=== PATIENT | male | born 1945 | race Caucasian/White ===

== ENCOUNTER 2016-10-06 08:40 | Outpatient (CLI) ==
[2016-05-06 23:57] VITALS: BMI 40.8
--- NOTE | 2016-10-06 09:13 | DI ---
Exam: Six x-rays of the cervical spine. Comparison: None available. Reason for exam: Numbness of scan. FINDINGS: Imaging was obtained from the C2 vertebral body to the C5-6 interspace. The C6 vertebral body, C7 vertebral body, and C7-T1 interspaces are not well evaluated secondary to summation from t he patient's shoulders. Multilevel degenerative disease with osteophyte formation and intervertebral body disc space height loss. There is straightening of the cervical lordotic curve. The prevertebral soft tissues are wit hin normal limits. The dens is intact on the Cook view. Impression: 1. Limited evaluation secondary to patient's body habitus and positioning. No obvious fracture or listhesis in the imaged portions of the cervical spine. 2. Multilevel degenerative disease with intervertebral body disc space height loss and osteophyte f ormation. If clinical suspicion is high for osseous injury, CT imaging may be performed. If clinic al suspicion exists for myelopathy or radiculopathy, MRI may be performed.
== END 2016-10-06 08:41 | disposition home or self-care (01) ==
LOC: RAD 08:40
PROVIDERS: ATTEND Physician Assistant Medical
DX: R20.0 Anesthesia of skin (principal)

== ENCOUNTER 2016-10-15 12:44 | Outpatient (CLI) ==
[2016-05-06 23:57] VITALS: BMI 40.8
--- NOTE | 2016-10-15 14:30 | CT ---
EXAM: CT cervical spine without contrast. HISTORY: Neck pain COMPARISON: Cervical spine x-ray 10/06/2016 TECHNIQUE: Serial axial images of the cervical spine were obtained from the skull base through the lung apices without contrast. These were viewed in multiple planes. FINDINGS: Vertebral bodies demonstrate multilevel degenerative disease with narrowing and osteophyt e formation. There is scattered facet arthropathy. The posterior processes are normal. There is no lytic or blastic lesion. The odontoid process is unremarkable. The C1 ring is intact. There is a broad-based disc bulge and facet arthropathy at C4-C5 with minimal neural foraminal narrowing. The re is broad-based disc bulge and facet arthropathy at C5-C6 with moderate central and moderate to se orion bilateral neural foraminal narrowing. C6-C7 demonstrates severe narrowing, osteophyte formatio n and disc bulge with moderate central and severe right and moderate left neural foraminal narrowing . There is moderate emphysematous disease. There is paranasal sinus disease. There is metallic artif act in the region of the skull base suggestive of previous aneurysm treatment. IMPRESSION: 1. No acute compression fracture or subluxation. 2. Multilevel degenerative disease most pronounced at C5-C6 with moderate central and moderate to s evere bilateral neural foraminal narrowing. If further evaluation is clinically indicated, MRI may be obtained. 2. Moderate emphysematous disease and scattered mild paranasal sinus disease is present.
== END 2016-10-15 12:45 ==
LOC: RAD 12:44
PROVIDERS: ATTEND Physician Assistant Medical
DX: M54.2 Cervicalgia (principal)

== ENCOUNTER 2016-11-05 10:54 | Emergency (ER) | payer OTHER ==
[2016-11-05 11:08] VITALS: BP 125/61; TEMP 97.9; BMI 38.3
--- NOTE | 2016-11-05 11:42 | DI ---
EXAM: Three views of the right second digit HISTORY: Trauma post log splitting accident. COMPARISON: None FINDINGS: There is soft tissue injury to the distal tip of the second digit. There is minimal corti giles irregularity of the distal tuft of the right second digit angulated margins suggestive of fractu re/amputation. IMPRESSION: Fracture/amputation of the distal phalanx of the right second digit with soft tissue in jury.
--- NOTE | 2016-11-05 12:10 | ED.PDOC ---
General ED Provider: Dr. PRABHAKAR MO Chief Complaint: Finger Laceration Stated Complaint: right index laceration / partial distal tip amputation Time Seen by Physician: 11:00 Mode of Arrival: Walk-In Information Source: Patient Exam Limitations: No limitations Primary Care Provider: BLANCA BHAGAT Nursing and Triage Documentation Reviewed and Agree: Yes Musculoskeletal Complaint Exam - Hand/Wrist Complaint/Exam Location of Pain: Reports: Right, Digit #1 Mechanism of Injury: Reports: Trauma Onset/Duration: 1.5 hr ago while wood splitting cought between and splitter Symptoms Are: Still present Onset of Pain: Reports: Immediate Initial Severity: Severe Current Severity: Severe Location: Reports: Discrete (see photo) Character: Reports: Aching Alleviating: Reports: Rest Aggravating: Reports: None Associated Signs and Symptoms: Reports: Swelling, Redness (partial amputation see photo) Dominant Hand: Right Review of Systems - Review Of Systems Constitutional: Reports: No symptoms Eyes: Reports: No symptoms Ears, Nose, Mouth, Throat: Reports: No symptoms Respiratory: Reports: No symptoms Cardiac: Reports: No symptoms GI: Reports: No symptoms : Reports: No symptoms Musculoskeletal: Reports: Other (pain amputation right index see finger ) Skin: Reports: No symptoms Neurological: Reports: No symptoms Endocrine: Reports: No symptoms Hematologic/Lymphatic: Reports: No symptoms All Other Systems: Reviewed and Negative Past Medical History - Past Medical History Previously Healthy: No Endocrine: Reports: DM 2, Dyslipidemia Cardiovascular: Reports: Hypertension Respiratory: Reports: COPD Hematological: Reports: None Gastrointestinal: Reports: None Genitourinary: Reports: None Neuro/Psych: Reports: None Musculoskeletal: Reports: None Cancer: Reports: None - Surgical History General Surgical History: Reports: Unknown - Family History Family History: Reports: Unknown - Social History Smoking Status: Current some day smoker Hx Substance Use: No Alcohol Screening: None - Immunizations Tetanus Shot up to Date: Yes Physical Exam - Physical Exam Appearance: Well-appearing, No pain distress, Well-nourished Eyes: NAHOMI, EOMI, Conjunctiva clear ENT: Ears normal, Nose normal, Oropharynx normal Respiratory: Airway patent, Breath sounds clear, Breath sounds equal, Respirations nonlabored Cardiovascular: RRR, Pulses normal, No rub, No murmur GI/: Soft, Nontender, No masses, Bowel sounds normal, No Organomegaly Musculoskeletal: ROM intact (distal right index finger is positive for partial amputation of the pulp of involved finger with full range of motion intact. the wound was cleansed by nursing staff on arrival and as well as 12:20 pm. No tendon injury noted. No palpable bones on examination. See involved photos. ) Skin: Warm, Dry, Normal color Neurological: Sensation intact, Motor intact, Reflexes intact, Cranial nerves intact, Alert, Oriented Psychiatric: Affect appropriate, Mood appropriate Physician Notification - Case Discussed Physician Notified: [email or web address] Time of Notification: 12:18 (pt will be seen on tuesday. injury descibed. ) Critical Care Note - Critical Care Note Total Time (mins): 0 Course - Course Orders, Labs, Meds: Orders Category Date Time Status FINGER(S) RIGHT MIN 2V Stat RADS 11/05/16 11:14 Completed Vital Signs: Temp Pulse Resp BP Pulse Ox 11/05/16 10:58 97.9 F 103 H 16 125/61 92 L Departure - Departure Time of Disposition: 12:19 Disposition: HOME SELF-CARE Discharge Problem: Laceration of finger Open fracture of phalanx of right index finger Qualifiers: Encounter type: initial encounter Phalanx: distal Fracture alignment: nondisplaced Qualifier Code: (S62.660B) Nondisplaced fracture of distal phalanx of right index finger, initial encounter for open fracture Instructions: Laceration (ED) Condition: Good Pt referred to PMD for follow-up: No Additional Instructions: Please call your Family Physician as soon as possible to schedule a follow-up appointment. Allergies/Adverse Reactions: Allergies codeine Adverse Reaction (Verified 11/05/16 10:56) Rash Home Medications: Ambulatory Orders Atenolol 100 mg PO DAILY 05/31/13 Budesonide/Formoterol Fumarate [Symbicort 80-4.5 Mcg Inhaler] 10.2 gm IH BID 02/03 Gemfibrozil 600 mg PO BID 05/31/13 Glipizide 10 mg PO BID 05/31/13 Lisinopril [Zestril] 40 mg PO DAILY 05/31/13 Metformin HCl 1,000 mg PO BID 05/31/13 Hydrochlorothiazide 25 mg PO DAILY 05/03/14 Albuterol Sulfate [Proair Hfa] 2 puff IH BID 10/01/15 Azelastine HCl 6 ml OP DAILY 10/01/15 Budesonide/Formoterol Fumarate [Symbicort 160-4.5 Mcg Inhaler] 1 puff IH DAILY 10/01/15 Rosuvastatin Calcium [Crestor] 10 mg PO BEDTIME 10/01/15 Tiotropium [place] [Spiriva] 1 applic INH DAILY 10/01/15 Sulfacetamide Sodium [Bleph-10 Opth Gely] 2 drop OP QID #1 bottle 01/20/16 Amoxicillin/Potassium Clav [Augmentin 500-125 mg Tab] 1 tab PO Q12HR #14 tablet 05/07/16 Amoxicillin/Potassium Clav [Augmentin 875-125 mg Tab] 1 tab PO Q12HR #14 tablet 11/05/16 Hydrocodone/Acetaminophen [[place] 10-325 Tablet] 1 each PO Q8HR #20 tablet Disposition Discussed With: Patient
[2016-11-05] MEDS ORDERED: ROCEPHIN IM STA (12:12)
[2016-11-05] MEDS ORDERED: LIDOCAINE 1 % AMP 5 ML (SUTURES) IM STA (12:12)
== END 2016-11-05 13:04 | disposition home or self-care (01) ==
LOC: ED 10:54
DX: S62.660B Nondisplaced fracture of distal phalanx of right index finger, initial encounter for open fracture (principal); S68.120A Partial traumatic metacarpophalangeal amputation of right index finger, initial encounter; W22.8XXA Striking against or struck by other objects, initial encounter; F17.210 Nicotine dependence, cigarettes, uncomplicated
CPT/HCPCS: 96372; 99283

== ENCOUNTER 2016-12-08 07:08 | Outpatient (CLI) ==
[2016-12-08 07:44] LABS: BASOPHILS % (AUTO) 0.4 % (0.0-3.0); EOSINOPHILS # (AUTO) 0.1 K/ul (0.0-0.7); EOSINOPHILS % (AUTO) 1.2 % (0.0-7.0); HEMATOCRIT 43.3 % (42.0-52.0); HEMOGLOBIN 14.4 g/dl (14.0-18.0); IMMATURE GRANULOCYTE % (AUTO) 0.4 % (0.0-5.0); LYMPHOCYTES # (AUTO) 2.8 K/uL (0.60-3.4); LYMPHOCYTES % (AUTO) 38.6 (10.0-50.0); MEAN CORPUSCULAR HEMOGLOBIN 33.1 pg (27.0-31.0); MEAN CORPUSCULAR HGB CONC 33.3 (31.8-35.4); MEAN CORPUSCULAR VOLUME 99.5 fl (80.0-94.0); MONOCYTES # (AUTO) 0.8 K/uL (0.4-2.0); MONOCYTES % (AUTO) 10.9 (0-10); NEUTROPHILS # (AUTO) 3.5 K/ul (2.0-6.9); NEUTROPHILS % (AUTO) 48.5; PLATELET COUNT 163 10^3/uL (140-440); RED BLOOD COUNT 4.35 10^6/ul (4.70-6.10); WHITE BLOOD COUNT 7.26 K/ul (4.2-10.2)
[2016-12-08 07:59] LABS: ANION GAP 18.1; BUN/CREATININE RATIO 23.8; CALCIUM 9.8 mg/dL (8.2-10.2); CHOL/HDL RATIO 5.4 (4.5-6.4); CREATININE 1.05 mg/dL (0.60-1.10); POTASSIUM 5.1 mmol/L (3.5-5.1)
== END 2016-12-08 07:09 | disposition home or self-care (01) ==
LOC: LAB 07:08
PROVIDERS: ATTEND Physician Assistant Medical
DX: E78.2 Mixed hyperlipidemia (principal); R73.01 Impaired fasting glucose
CPT/HCPCS: 36415; 80048; 80061; 83036; 85025

== ENCOUNTER 2017-03-11 07:25 | Outpatient (CLI) ==
[2017-03-11 08:01] LABS: BASOPHILS % (AUTO) 0.4 % (0.0-3.0); EOSINOPHILS # (AUTO) 0.1 K/ul (0.0-0.7); EOSINOPHILS % (AUTO) 0.7 % (0.0-7.0); HEMATOCRIT 43.8 % (42.0-52.0); HEMOGLOBIN 14.8 g/dl (14.0-18.0); IMMATURE GRANULOCYTE % (AUTO) 0.4 % (0.0-5.0); LYMPHOCYTES # (AUTO) 2.6 K/uL (0.60-3.4); LYMPHOCYTES % (AUTO) 31.5 (10.0-50.0); MEAN CORPUSCULAR HEMOGLOBIN 33.4 pg (27.0-31.0); MEAN CORPUSCULAR HGB CONC 33.8 (31.8-35.4); MEAN CORPUSCULAR VOLUME 98.9 fl (80.0-94.0); MONOCYTES # (AUTO) 0.8 K/uL (0.4-2.0); MONOCYTES % (AUTO) 9.8 (0-10); NEUTROPHILS # (AUTO) 4.6 K/ul (2.0-6.9); NEUTROPHILS % (AUTO) 57.2; PLATELET COUNT 165 10^3/uL (140-440); RED BLOOD COUNT 4.43 10^6/ul (4.70-6.10); WHITE BLOOD COUNT 8.09 K/ul (4.2-10.2)
[2017-03-11 08:20] LABS: CHOL/HDL RATIO 5.9 (4.5-6.4)
== END 2017-03-11 07:26 | disposition home or self-care (01) ==
LOC: LAB 07:25
PROVIDERS: ATTEND Physician Assistant Medical
DX: E78.2 Mixed hyperlipidemia (principal)
CPT/HCPCS: 36415; 80061; 85025

== ENCOUNTER 2017-06-15 07:09 | Outpatient (CLI) | END 2017-06-15 07:10 | disposition home or self-care (01) | LOC: LAB 07:09 | PROVIDERS: ATTEND Physician Assistant Medical | DX: E11.9 Type 2 diabetes mellitus without complications (principal); Z12.5 Encounter for screening for malignant neoplasm of prostate | CPT/HCPCS: 36415; 80053; 80061; 83036; 84439; 84443; 85025 ==

== ENCOUNTER 2018-07-07 11:36 | Emergency (ER) ==
[2018-07-07 11:40] VITALS: BP 115/56; TEMP 98; BMI 40.2
--- NOTE | 2018-07-07 12:33 | ED.PDOC ---
General ED Provider: Dr. PRABHAKAR MO Chief Complaint: Penile Problem Stated Complaint: penile pain Time Seen by Physician: 11:40 Information Source: Patient Exam Limitations: No limitations Primary Care Provider: BLANCA BHAGAT Nursing and Triage Documentation Reviewed and Agree: Yes Does patient meet sepsis criteria?: No If yes, has appropriate treatment been initiated?: No System Inflammatory Response Syndrome: Not Applicable Sepsis Protocol: For patient's 13 years and over: Temp is 96.8 and below OR 101 and greater Pulse >90 BPM Resp >20/minute Acutely Altered Mental Status Are patient's symptoms suggestive of a new infection, such as: -Pneumonia -Skin, Soft Tissue -Endocarditis -UTI -Bone, Joint Infection -Implantable Device -Acute Abdominal Infection -Wound Infection -Meningitis -Blood Stream Catheter Infection -Unknown Complaint Exam - Complaint/Exam Patient Complains of: Reports: Dysuria Onset/Duration: 1 week Symptoms Are: Still present Timing: Intermittent Initial Severity: Mild Current Severity: Mild Location of Pain: Reports: Scrotum, Suprapubic Character: Reports: Burning Aggravating: Reports: None Alleviating: Reports: None Associated Signs and Symptoms: Reports: Dysuria, Scrotal pain Review of Systems - Review Of Systems Constitutional: Reports: No symptoms Eyes: Reports: No symptoms Ears, Nose, Mouth, Throat: Reports: No symptoms Respiratory: Reports: No symptoms Cardiac: Reports: No symptoms GI: Reports: No symptoms : Reports: Dysuria Musculoskeletal: Reports: No symptoms Skin: Reports: No symptoms Neurological: Reports: No symptoms Endocrine: Reports: No symptoms Hematologic/Lymphatic: Reports: No symptoms All Other Systems: Reviewed and Negative Past Medical History - Past Medical History Previously Healthy: No Endocrine: Reports: DM 2, Dyslipidemia Cardiovascular: Reports: Hypertension Respiratory: Reports: COPD Hematological: Reports: None Gastrointestinal: Reports: None Genitourinary: Reports: None Neuro/Psych: Reports: None Musculoskeletal: Reports: None Cancer: Reports: None - Surgical History General Surgical History: Reports: Unknown - Family History Family History: Reports: Unknown - Social History Smoking Status: Current every day smoker Hx Substance Use: No Alcohol Screening: None - Immunizations Tetanus Shot up to Date: Yes Physical Exam - Physical Exam Appearance: Well-appearing, No pain distress, Well-nourished Eyes: NAHOMI, EOMI, Conjunctiva clear ENT: Ears normal, Nose normal, Oropharynx normal Respiratory: Airway patent, Breath sounds clear, Breath sounds equal, Respirations nonlabored Cardiovascular: RRR, Pulses normal, No rub, No murmur GI/: Soft, Nontender, No masses, Bowel sounds normal, No Organomegaly Musculoskeletal: Normal strength, ROM intact, No edema, No calf tenderness Skin: Warm, Dry, Normal color Neurological: Sensation intact, Motor intact, Reflexes intact, Cranial nerves intact, Alert, Oriented Psychiatric: Affect appropriate, Mood appropriate Critical Care Note - Critical Care Note Total Time (mins): 0 Course - Course Hematology/Chemistry: 07/07/18 12:08 Orders, Labs, Meds: Lab Review 07/07/18 07/07/18 12:08 12:10 WBC 6.49 RBC 4.60 L Hgb 14.3 Hct 44.9 MCV 97.6 H MCH 31.1 H MCHC 31.8 RDW Coeff of Rodney 13.8 Plt Count 147 Immature Gran % (Auto) 0.5 Neut % (Auto) 59.4 Lymph % (Auto) 27.9 Howell % (Auto) 10.8 H Eos % (Auto) 0.9 Baso % (Auto) 0.5 Immature Gran # (Auto) 0.0 Neut # (Auto) 3.9 Lymph # (Auto) 1.8 Howell # (Auto) 0.7 Eos # (Auto) 0.1 Baso # (Auto) 0.0 Urine Color Yellow Urine Clarity Clear Urine pH 5.5 Ur Specific [place] 1.020 Urine Protein Negative Urine Glucose (UA) 2+ Urine Ketones Negative Urine Blood Trace-intact Urine Nitrite Negative Urine Bilirubin Negative Urine Urobilinogen 0.2 Ur Leukocyte Esterase 1+ Urine Microscopic RBC 2-5 Urine Microscopic WBC 5-10 Ur Squamous Epith Cells 20-30 Orders Category Date Time Status CBC W/ AUTO DIFF Stat LAB 07/07/18 12:08 Completed COMPREHENSIVE METABOLIC PANEL Stat LAB 07/07/18 12:08 Received URINALYSIS C & S IF INDICATED Stat LAB 07/07/18 12:10 Completed URINE CULTURE Stat LAB 07/07/18 12:10 Received ULTRASOUND SCROTUM [U/S SCROTUM] Stat RADS 07/07/18 11:57 Ordered Vital Signs: Temp Pulse Resp BP Pulse Ox 07/07/18 11:37 98.0 F 66 20 115/56 L 90 L Departure - Departure Time of Disposition: 13:10 Disposition: HOME SELF-CARE Discharge Problem: UTI (urinary tract infection) Qualifiers: Urinary tract infection type: acute cystitis Hematuria presence: without hematuria Qualified Code(s): N30.00 - Acute cystitis without hematuria Instructions: Urinary Tract Infection in Men (ED) Condition: Good Pt referred to PMD for follow-up: Yes IPMP verified?: No Additional Instructions: Please call your Family Physician as soon as possible to schedule a follow-up appointment. Allergies/Adverse Reactions: Allergies codeine Adverse Reaction (Verified 11/05/16 10:56) Rash Home Medications: Ambulatory Orders Atenolol 100 mg PO DAILY 05/31/13 Budesonide/Formoterol Fumarate [Symbicort 80-4.5 Mcg Inhaler] 10.2 gm IH BID 02/03 Gemfibrozil 600 mg PO BID 05/31/13 Glipizide 10 mg PO BID 05/31/13 Lisinopril [Zestril] 40 mg PO DAILY 05/31/13 Metformin HCl 1,000 mg PO BID 05/31/13 Hydrochlorothiazide 25 mg PO DAILY 05/03/14 Azelastine HCl 6 ml OP DAILY 10/01/15 Budesonide/Formoterol Fumarate [Symbicort 160-4.5 Mcg Inhaler] 1 puff IH DAILY 10/01/15 Rosuvastatin Calcium [Crestor] 10 mg PO BEDTIME 10/01/15 Tiotropium [place] [Spiriva] 1 applic INH DAILY 10/01/15 Sulfacetamide Sodium [Bleph-10 Opth Gely] 2 drop OP QID #1 bottle 01/20/16 Hydrocodone/Acetaminophen [[place] 10-325 Tablet] 1 each PO Q8HR #20 tablet Valacyclovir HCl [Valacyclovir] 500 mg PO DAILY 07/07/18
--- NOTE | 2018-07-07 12:47 | US ---
EXAM: Scrotal ultrasound. History: bilateral scrotal swelling. Technique: Multiple sonographic images through the scrotum were obtained. Color duplex Doppler was used to interrogate vascular flow. Findings: The right testicle measures 3.9 cm x 2.9 cm x 3.4 cm. Blood flow was documented within the right yung ticle. The right intratesticular masses are identified. Incidental right appendix testis. Moderate complicated right hydrocele with debris. There is hyperemia within and surrounding the right epidid ymis. The left testicle measures 4.0 cm x 2.6 cm x 3.3 cm. Blood flow is documented within the left testic le. No left intratesticular masses are identified. Moderate complicated left hydrocele with the eda ris. The left epididymis is hyperemic and there is surrounding hyperemia. Moderate left varicocele. Impression: 1. Bilateral epididymitis. 2. No evidence for testicular torsion. 3. Complicated bilateral hydroceles. 4. Moderate left varicocele
== END 2018-07-07 12:54 | disposition home or self-care (01) ==
LOC: ED 11:36
DX: N48.89 Other specified disorders of penis (principal); R30.0 Dysuria; N50.82 Scrotal pain; Z72.0 Tobacco use; N30.00 Acute cystitis without hematuria; N45.1 Epididymitis
CPT/HCPCS: 36415; 80053; 81001; 85025; 87086; 99282

== ENCOUNTER 2018-07-31 11:25 | Outpatient (CLI) | payer OTHER ==
--- NOTE | 2018-07-31 12:45 | US ---
EXAM: ULTRASOUND LOWER EXTREMITY VENOUS DOPPLER EXAM HISTORY: Leg edema. FINDINGS: Right lower extremity venous Doppler exam. Real time tariq-scale, Doppler spectral analysi s and color-flow Doppler imaging performed. The veins targeted for evaluation include the common fem oral, greater saphenous, profundus, femoral, popliteal, peroneal, anterior tibial and posterior tibia l. The evaluated veins demonstrated normal spontaneous flow and compression without evidence of th rombosis. IMPRESSION: No venous thrombosis identified within the areas evaluated.
== END 2018-07-31 11:26 | disposition home or self-care (01) ==
LOC: RAD 11:25
PROVIDERS: ATTEND Physician Assistant
DX: R60.0 Localized edema (principal); R19.7 Diarrhea, unspecified
CPT/HCPCS: 36415; 80053; 81001; 85025

== ENCOUNTER 2018-08-01 11:33 | Outpatient (CLI) | END 2018-08-01 11:34 | disposition home or self-care (01) | LOC: LAB 11:33 | PROVIDERS: ATTEND Physician Assistant | DX: R19.7 Diarrhea, unspecified (principal) | CPT/HCPCS: 87015; 87045; 87177; 87493; 87899; 89055 ==

== ENCOUNTER 2018-08-14 10:24 | Emergency (ER) ==
[2018-08-14 10:24] VITALS: BMI 40.2
[2018-08-14 10:27] VITALS: BP 89/43; TEMP 98.8
[2018-08-14] MEDS ORDERED: DUONEB NEB STA (11:30)
--- NOTE | 2018-08-14 12:17 | CT ---
Exam: Chest CT without contrast HISTORY: Congestion for 1 week. Procedures: contiguous axial images were obtained through the chest without the use of contrast. Sa gittal and coronal reformatted images were also created and reviewed. Comparison: CT chest 09/15/2011. Findings: There is no axillary lymphadenopathy. Atherosclerotic disease is noted, including the jhoan nary arteries. Subcentimeter lymph nodes are noted in the mediastinum without nadine mediastinal lymp hadenopathy. There is no pericardial effusion. Limited visualization of the upper abdominal soft ti ssues demonstrates no lymphadenopathy. Lung windows demonstrate no evidence of pneumothorax. There is stable appearance of a 3 mm subpleural nodule in the right lower lobe, unchanged. Pulmonary emphy sematous disease is seen. There is new appearance of a 2.1 cm x 1.6 cm x 1.5 cm somewhat spiculated nodule in the posterior right upper lobe seen on axial series 3.2 image 19. The trachea and mainstem bronchi appear patent. Bone windows demonstrate no evidence of acute fracture. Old, healed appearing right rib fracture def ormities are again noted. Impressions: 2.1 cm x 1.6 cm x 1.5 cm pulmonary nodule in the posterior right upper lobe most concerning for neopl asm. Consider Nuclear Medicine PET scan for further evaluation. Pulmonary emphysematous disease. Atherosclerosis, including the coronary arteries. Findings were faxed to the emergency department at 12:05 p.m.
--- NOTE | 2018-08-14 12:44 | ED.PDOC ---
General ED Provider: Dr. PRABHAKAR MO Chief Complaint: Respiratory Complaint Stated Complaint: flu like symptom Time Seen by Physician: 10:30 (seen with nursing staff) Mode of Arrival: Walk-In Information Source: Patient Exam Limitations: No limitations Primary Care Provider: BLANCA BHAGAT Nursing and Triage Documentation Reviewed and Agree: Yes Does patient meet sepsis criteria?: No If yes, has appropriate treatment been initiated?: No System Inflammatory Response Syndrome: Not Applicable Sepsis Protocol: For patient's 13 years and over: Temp is 96.8 and below OR 101 and greater Pulse >90 BPM Resp >20/minute Acutely Altered Mental Status Are patient's symptoms suggestive of a new infection, such as: -Pneumonia -Skin, Soft Tissue -Endocarditis -UTI -Bone, Joint Infection -Implantable Device -Acute Abdominal Infection -Wound Infection -Meningitis -Blood Stream Catheter Infection -Unknown Review of Systems - Review Of Systems Constitutional: Reports: Malaise Eyes: Reports: No symptoms Ears, Nose, Mouth, Throat: Reports: No symptoms Respiratory: Reports: Cough Cardiac: Reports: No symptoms GI: Reports: No symptoms : Reports: No symptoms Musculoskeletal: Reports: No symptoms Skin: Reports: No symptoms Neurological: Reports: No symptoms Endocrine: Reports: No symptoms Hematologic/Lymphatic: Reports: No symptoms All Other Systems: Reviewed and Negative Past Medical History - Past Medical History Previously Healthy: No Endocrine: Reports: DM 2, Dyslipidemia Cardiovascular: Reports: Hypertension Respiratory: Reports: COPD Hematological: Reports: None Gastrointestinal: Reports: None Genitourinary: Reports: None Neuro/Psych: Reports: None Musculoskeletal: Reports: None Cancer: Reports: None - Surgical History General Surgical History: Reports: Unknown - Family History Family History: Reports: Unknown - Social History Smoking Status: Current every day smoker, Heavy tobacco smoker Hx Substance Use: No Alcohol Screening: None Physical Exam - Physical Exam Appearance: Well-appearing, No pain distress, Well-nourished Eyes: NAHOMI, EOMI, Conjunctiva clear ENT: Ears normal, Nose normal, Oropharynx normal Respiratory: Breath sounds diminished, Rhonchi Cardiovascular: RRR, Pulses normal, No rub, No murmur GI/: Soft, Nontender, No masses, Bowel sounds normal, No Organomegaly Musculoskeletal: Normal strength, ROM intact, No edema, No calf tenderness Skin: Warm, Dry, Normal color Neurological: Sensation intact, Motor intact, Reflexes intact, Cranial nerves intact, Alert, Oriented Psychiatric: Affect appropriate, Mood appropriate Interpretation - Radiology Interpretation Radiology Interpretation By: Radiologist Radiology Results: Positive (pulmonary nodule) Re-Evaluation - Re-Evaluation Time of Re-Evaluation: 12:46 Status: Improved Vital Signs Stable: Yes Pain Level: 0 Appearance: NAD Lungs: Clear Skin: Warm and Dry Neuro: Alert and Oriented X3 CV: RRR Critical Care Note - Critical Care Note Total Time (mins): 0 Course - Course Hematology/Chemistry: 08/14/18 11:05 08/14/18 11:05 Orders, Labs, Meds: Lab Review 08/14/18 08/14/18 08/14/18 10:55 11:05 11:05 WBC 5.82 RBC 4.35 L Hgb 13.6 L Hct 42.9 MCV 98.6 H MCH 31.3 H MCHC 31.7 L RDW Coeff of Rodney 13.6 Plt Count 193 Immature Gran % (Auto) 0.7 Neut % (Auto) 61.1 Lymph % (Auto) 27.0 Chase % (Auto) 10.0 Eos % (Auto) 0.7 Baso % (Auto) 0.5 Immature Gran # (Auto) 0.0 Neut # (Auto) 3.6 Lymph # (Auto) 1.6 Chase # (Auto) 0.6 Eos # (Auto) 0.0 Baso # (Auto) 0.0 Sodium 135.5 Potassium 4.42 Chloride 104.6 Carbon Dioxide 20.4 L Anion Gap 14.92 BUN 25.0 H Creatinine 1.27 H Estimated GFR (MDRD) 56.00 BUN/Creatinine Ratio 19.68 Glucose 135.9 H Lactic Acid Calcium 8.76 Total Bilirubin 0.46 AST 36.4 ALT 24.3 Alkaline Phosphatase 43.6 L Total Creatine Kinase 66.1 Troponin I < 0.012 Total Protein 7.19 Albumin 3.98 Globulin 3.21 Albumin/Globulin Ratio 1.23 Procalcitonin Influ A Molecular Assay Negative by naat Influ B Molecular Assay Negative by naat 08/14/18 08/14/18 11:05 11:05 WBC RBC Hgb Hct MCV MCH MCHC RDW Coeff of Rodney Plt Count Immature Gran % (Auto) Neut % (Auto) Lymph % (Auto) Chase % (Auto) Eos % (Auto) Baso % (Auto) Immature Gran # (Auto) Neut # (Auto) Lymph # (Auto) Chase # (Auto) Eos # (Auto) Baso # (Auto) Sodium Potassium Chloride Carbon Dioxide Anion Gap BUN Creatinine Estimated GFR (MDRD) BUN/Creatinine Ratio Glucose Lactic Acid 1.38 Calcium Total Bilirubin AST ALT Alkaline Phosphatase Total Creatine Kinase Troponin I Total Protein Albumin Globulin Albumin/Globulin Ratio Procalcitonin 0.09 Influ A Molecular Assay Influ B Molecular Assay Orders Category Date Time Status EKG-(ED ONLY) Stat CARDIO 08/14/18 10:54 Completed NEBULIZER TREATMENT Stat CARDIO 08/14/18 11:31 Ordered ED IV/MEDIPORT/POWERPORT .ONCE EMERGENCY 08/14/18 10:54 Active BLOOD CULTURE Stat LAB 08/14/18 11:05 Received CBC W/ AUTO DIFF Stat LAB 08/14/18 11:05 Completed COMPREHENSIVE METABOLIC PANEL Stat LAB 08/14/18 11:05 Completed CREATINE KINASE Stat LAB 08/14/18 11:05 Completed FLU A/B MOLECULAR Stat LAB 08/14/18 10:55 Completed LACTIC ACID Stat LAB 08/14/18 11:05 Completed MOLECULAR GROUP A STREP Stat LAB 08/14/18 10:55 Completed PROCALCITONIN Stat LAB 08/14/18 11:05 Completed TROPONIN I Stat LAB 08/14/18 11:05 Completed 0.9 % Sodium Chloride [Saline Flush] MEDS 08/14/18 10:53 Active 1 syr IVF PRN PRN Ipratropium/Albuterol Neb [Duoneb] MEDS 08/14/18 11:30 Discontinued 1 vial NEB ONCE STA CT CHEST W/O CONTRAST Stat RADS 08/14/18 10:57 Completed Medications Generic Name Dose Route Start Last Admin Trade Name Freq PRN Reason Stop Dose Admin Sodium Chloride 1 syr 08/14/18 10:53 Saline Flush IVF PRN PRN To flush IV Discontinued Medications Generic Name Dose Route Start Last Admin Trade Name Freq PRN Reason Stop Dose Admin Albuterol/Ipratropium 1 vial 08/14/18 11:30 Duoneb NEB 08/14/18 11:31 ONCE STA Vital Signs: Temp Pulse Resp BP Pulse Ox 08/14/18 10:24 98.8 F 61 22 89/43 L 91 L Departure - Departure Time of Disposition: 12:46 Disposition: HOME SELF-CARE Discharge Problem: Pulmonary nodule Anemia Qualifiers: Anemia type: unspecified type Qualified Code(s): D64.9 - Anemia, unspecified Instructions: Pulmonary Nodules (ED) Condition: Good Pt referred to PMD for follow-up: Yes IPMP verified?: No Additional Instructions: Please call your Family Physician as soon as possible to schedule a follow-up appointment. Allergies/Adverse Reactions: Allergies codeine Adverse Reaction (Verified 08/14/18 10:27) Rash Home Medications: Ambulatory Orders Atenolol 100 mg PO DAILY 05/31/13 Budesonide/Formoterol Fumarate [Symbicort 80-4.5 Mcg Inhaler] 10.2 gm IH BID 02/03 Gemfibrozil 600 mg PO BID 05/31/13 Glipizide 10 mg PO BID 05/31/13 Lisinopril [Zestril] 40 mg PO DAILY 05/31/13 Metformin HCl 1,000 mg PO BID 05/31/13 Hydrochlorothiazide 25 mg PO DAILY 05/03/14 Azelastine HCl 6 ml OP DAILY 10/01/15 Budesonide/Formoterol Fumarate [Symbicort 160-4.5 Mcg Inhaler] 1 puff IH DAILY 10/01/15 Rosuvastatin Calcium [Crestor] 10 mg PO BEDTIME 10/01/15 Tiotropium [place] [Spiriva] 1 applic INH DAILY 10/01/15 Valacyclovir HCl [Valacyclovir] 500 mg PO DAILY 07/07/18 Disposition Discussed With: Patient
== END 2018-08-14 13:02 | disposition home or self-care (01) ==
LOC: ED 10:24
DX: R91.1 Solitary pulmonary nodule (principal); D64.9 Anemia, unspecified; E11.9 Type 2 diabetes mellitus without complications; E78.5 Hyperlipidemia, unspecified; I10 Essential (primary) hypertension; J44.9 Chronic obstructive pulmonary disease, unspecified; F17.210 Nicotine dependence, cigarettes, uncomplicated; Z79.899 Other long term (current) drug therapy; N28.9 Disorder of kidney and ureter, unspecified
CPT/HCPCS: 36415; 80053; 82550; 83605; 84145; 84484; 85025; 87040; 87502; 87651; 93005; 93010; 94640; 99283

== ENCOUNTER 2018-10-02 07:39 | Outpatient (CLI) | payer OTHER | END 2018-10-02 07:40 | disposition home or self-care (01) | LOC: LAB 07:39 | PROVIDERS: ATTEND Physician Assistant | DX: R94.4 Abnormal results of kidney function studies (principal); E11.9 Type 2 diabetes mellitus without complications | CPT/HCPCS: 36415; 80053; 83036; 85025 ==

== ENCOUNTER 2018-10-12 08:11 | Outpatient (CLI) | END 2018-10-12 08:12 | disposition home or self-care (01) | LOC: LAB 08:11 | PROVIDERS: ATTEND Physician Assistant | DX: R94.4 Abnormal results of kidney function studies (principal); D64.9 Anemia, unspecified | CPT/HCPCS: 36415; 80053; 82607; 82746; 83540; 83550; 85025 ==

== ENCOUNTER 2019-01-08 07:33 | Outpatient (CLI) | END 2019-01-08 07:34 | disposition home or self-care (01) | LOC: LAB 07:33 | PROVIDERS: ATTEND Physician Assistant | DX: E11.9 Type 2 diabetes mellitus without complications (principal) | CPT/HCPCS: 36415; 80053; 80061; 82043; 83036; 85025 ==